=== PATIENT | female | born 1990 | race African-American/Black ===

== ENCOUNTER 2017-05-20 16:19 | Observation (INO) | payer MEDICAID ==
[~2017-05-20] VITALS: Ht 167.6 cm; Wt 96.2 kg
[2017-05-20] MEDS ORDERED: PREN-380 PO (17:14)
[2017-05-20] MEDS ORDERED: FERR325E14 PO (17:14)
[2017-05-20 20:06] VITALS: BP 116/65
== END 2017-05-20 20:15 | disposition home or self-care (01) ==
LOC: MLD 16:19
PROVIDERS: ADMIT Obstetrics & Gynecology; ATTEND Obstetrics & Gynecology
DX: O26.893 Other specified pregnancy related conditions, third trimester (principal); R10.9 Unspecified abdominal pain; Z3A.38 38 weeks gestation of pregnancy
CPT/HCPCS: 76805; G0378; Q0092; 59025; 81000

== ENCOUNTER 2017-06-04 10:36 | Inpatient (IN) | payer MEDICAID ==
[~2017-06-04] VITALS: Ht 167.6 cm; Wt 97.5 kg
[2017-06-04] MEDS: AMPICILLIN 1,000 MG in NACL 0.9% MINI-BAG PLUS 50 ML IV SCH ×3 (02:12→22:15)
[~2017-06-04 10:36] MED LIST: FERR325E14 PO; PREN-380 PO
[2017-06-04] MEDS ORDERED: NALBUPHINE HYDROCHLORIDE 10 MG/ML VIAL IVP PRN (11:00)
[2017-06-04] MEDS ORDERED: CARBOPROST 250 MCG/ML AMP IM PRN (11:00)
[2017-06-04] MEDS ORDERED: PROMETHAZINE 25 MG/ML VIAL IVP SCH (11:00)
[2017-06-04] MEDS ORDERED: METHYLERGONOVINE 0.2 MG/ML AMP IM PRN (11:00)
[2017-06-04] MEDS ORDERED: AMPICILLIN 2,000 MG in NACL 0.9% MINI-BAG PLUS 100 ML IV SCH (11:00)
[2017-06-04] MEDS ORDERED: OXYTOCIN 10 UNITS/ML VIAL IM SCH (11:00)
[2017-06-04 11:13] VITALS: BP 117/75
[2017-06-04] MEDS ORDERED: AMPICILLIN 2,000 MG VIAL ONE (11:49)
[2017-06-04] MEDS ORDERED: MISOPROSTOL 25 MCG TAB VG SCH (12:00)
[2017-06-04] MEDS: LACTATED RINGERS 1,000 ML IV SCH ×2 (12:15→18:38)
[2017-06-04] MEDS ORDERED: MISOPROSTOL 25 MCG TAB ONE (13:17)
[2017-06-04 13:48] LABS: BASOPHILS % (AUTO) 0.5 % (0.0-2.0); EOSINOPHILS # (AUTO) 0.1 K/uL (0-0.4); EOSINOPHILS % (AUTO) 0.9 % (0.0-4.0); HEMATOCRIT 39.3 % (36-48); HEMOGLOBIN 13.1 g/dL (12.0-16.0); LYMPHOCYTES # (AUTO) 1.3 K/uL (2.5-16.5); MEAN CORPUSCULAR HEMOGLOBIN 30 pg (27-31); MEAN CORPUSCULAR HGB CONC 34 g/dL (33-37); MEAN CORPUSCULAR VOLUME 89 fL (80-94); MONOCYTES # (AUTO) 0.4 K/uL (0.8-1.0); MONOCYTES % (AUTO) 4.7 % (1.7-9.3); NEUTROPHILS # (AUTO) 5.9 K/uL (1.8-7.7); NEUTROPHILS % (AUTO) 76.9 % (42.2-75.2); PLATELET COUNT (AUTO) 179 K/uL (140-450); RED BLOOD CELL COUNT(AUTO) 4.43 MIL/uL (4.20-5.40); RED CELL DISTRIBUTION WIDTH 14.2 % (11.6-13.7); WHITE BLOOD COUNT (AUTO) 7.8 K/uL (4.8-10.8)
[2017-06-04 14:11] LABS: ALBUMIN 2.6 g/dL (3.4-5.0); ANION GAP 13.8 (8-16); CARBON DIOXIDE 23.8 mmol/L (21-32); CREATININE 0.7 mg/dL (0.6-1.3); POTASSIUM 3.6 mmol/L (3.5-5.1); TOTAL BILIRUBIN 0.4 mg/dL (0.0-1.0)
[2017-06-04 14:22] LABS: APPEARANCE,URINE CLEAR (CLEAR); BILIRUBIN,URINE NEGATIVE (NEGATIVE); BLOOD, URINE NEGATIVE (NEGATIVE); COLOR,URINE YELLOW (YELLOW); LEUKOCYTE ESTERASE ,URINE NEGATIVE (NEGATIVE); NITRITE, URINE NEGATIVE (NEGATIVE); PH,URINE 6.5 (5.0-9.0); UGLUCOSE NEGATIVE (NEGATIVE)
[2017-06-04] MEDS ORDERED: AMPICILLIN 1,000 MG VIAL ONE ×2 (18:40→22:10)
[2017-06-05] MEDS: AMPICILLIN 1,000 MG in NACL 0.9% MINI-BAG PLUS 50 ML IV SCH ×3 (01:30→19:55)
[2017-06-05] MEDS ORDERED: AMPICILLIN 1,000 MG VIAL ONE ×3 (02:04→19:35)
[2017-06-05] MEDS: LACTATED RINGERS 1,000 ML IV SCH ×4 (04:21→17:27)
[2017-06-05] MEDS ORDERED: OXYTOCIN 20 UNITS/LR PREMIX 1,000 ML IV ONE (04:55)
--- NOTE | 2017-06-05 10:43 | NUR ---
PATIENT HAS BEEN SCREENED AND CATEGORIZED LOW NUTRITION RISK. PATIENT WILL BE SEEN WITHIN 7 DAYS OF ADMISSION. 06/11/17 LIZETTE NEWTON MBA, RD
[2017-06-05] MEDS ORDERED: BUPIVACAINE 0.125%/NS PREMIX 250 ML ONE (14:38)
[2017-06-05] MEDS ORDERED: BUPIVACAINE 0.125%/NS PREMIX 250 ML EPI SCH (15:45)
[2017-06-06] MEDS ORDERED: AMPICILLIN 1,000 MG VIAL ONE ×3 (01:28→08:30)
[2017-06-06] MEDS: LACTATED RINGERS 1,000 ML IV SCH ×2 (01:30→12:35)
[2017-06-06] MEDS ORDERED: BUPIVACAINE 0.125%/NS PREMIX 250 ML ONE (03:22)
[2017-06-06] MEDS ORDERED: OXYTOCIN 20 UNITS/LR PREMIX 1,000 ML IV ONE (04:59)
[2017-06-06] MEDS: AMPICILLIN 1,000 MG in NACL 0.9% MINI-BAG PLUS 50 ML IV SCH (09:00)
[2017-06-06] MEDS ORDERED: OXYTOCIN 10 UNITS/ML VIAL ONE ×3 (11:05→21:45)
[2017-06-06] MEDS ORDERED: ceFAZolin 2,000 MG in NACL 0.9% 100 ML IV ONE (17:50)
[2017-06-06] MEDS ORDERED: CITRIC ACID/SODIUM CITRATE 30 ML UDC PO SCH (17:50)
[2017-06-06] MEDS ORDERED: CITRIC ACID/SODIUM CITRATE 30 ML UDC ONE (18:28)
[2017-06-06] MEDS ORDERED: MORPHINE PRES FREE 10 MG/10 ML AMP IV ONE (19:10)
[2017-06-06] MEDS ORDERED: LIDOCAINE/EPI MPF 2%1:200000 10 ML VIAL INJ ONE (19:10)
[2017-06-06] MEDS ORDERED: SODIUM BICARBONATE 8.4% PFS 50 MEQ/50 ML SYR IVP ONE (19:11)
[2017-06-06] MEDS ORDERED: ceFAZolin 1,000 MG VIAL IVP ONE (19:25)
[2017-06-06] MEDS ORDERED: KETAMINE 500 MG/5 ML VIAL ONE (20:43)
[2017-06-06] MEDS ORDERED: ONDANSETRON 4 MG/2 ML VIAL IVP PRN ×2 (21:20)
[2017-06-06] MEDS ORDERED: KETOROLAC 60 MG/2 ML VIAL IM PRN (21:20)
[2017-06-06] MEDS ORDERED: NALOXONE 0.4 MG/ML VIAL IVP PRN ×3 (21:20)
[2017-06-06] MEDS ORDERED: NALBUPHINE 10 MG/ML AMP IVP PRN (21:20)
[2017-06-06] MEDS ORDERED: diphenhydrAMINE 50 MG/ML VIAL IVP PRN (21:20)
[2017-06-06] MEDS ORDERED: ONDANSETRON 4 MG/2 ML VIAL ONE (21:45)
[2017-06-06] MEDS ORDERED: ACETAMINOPHEN 325 MG TAB PO PRN (22:05)
[2017-06-06] MEDS ORDERED: KETOROLAC 30 MG/ML VIAL IVP PRN (22:05)
[2017-06-06] MEDS ORDERED: MEASLES, MUMPS, AND RUBELLA 1 VIAL SQVAC PRN (22:05)
[2017-06-06] MEDS ORDERED: HYDROmorphone PFS 2 MG/ML SYR IVP PRN (22:05)
[2017-06-07] MEDS ORDERED: OXYTOCIN 20 UNITS/LR PREMIX 1,000 ML IV ONE (03:06)
[2017-06-07] MEDS: OXYTOCIN 20 UNITS in LACTATED RINGERS 1,000 ML IV SCH ×2 (03:46→12:30)
[2017-06-07 07:38] LABS: BASOPHILS % (AUTO) 0.3 % (0.0-2.0); EOSINOPHILS # (AUTO) 0.1 K/uL (0-0.4); EOSINOPHILS % (AUTO) 0.8 % (0.0-4.0); HEMATOCRIT 33.1 % (36-48); HEMOGLOBIN 11.3 g/dL (12.0-16.0); LYMPHOCYTES # (AUTO) 1.3 K/uL (2.5-16.5); LYMPHOCYTES % (AUTO) 9.4 % (20.5-51.1); MEAN CORPUSCULAR HEMOGLOBIN 30 pg (27-31); MEAN CORPUSCULAR HGB CONC 34 g/dL (33-37); MEAN CORPUSCULAR VOLUME 87 fL (80-94); MONOCYTES # (AUTO) 1.1 K/uL (0.8-1.0); NEUTROPHILS # (AUTO) 11.2 K/uL (1.8-7.7); NEUTROPHILS % (AUTO) 81.5 % (42.2-75.2); PLATELET COUNT (AUTO) 151 K/uL (140-450); RED BLOOD CELL COUNT(AUTO) 3.81 MIL/uL (4.20-5.40); RED CELL DISTRIBUTION WIDTH 14.4 % (11.6-13.7); WHITE BLOOD COUNT (AUTO) 13.7 K/uL (4.8-10.8)
[2017-06-08] MEDS ORDERED: INFLUENZA VIRUS VACCINE QUAD 0.5 ML SYR IMVAC SCH (00:55)
[2017-06-08] MEDS ORDERED: DOCUSATE SODIUM 100 MG GELCAP PO PRN (08:00)
[2017-06-08] MEDS ORDERED: oxyCODONE/APAP 5/325 MG 1 TAB TAB PO PRN (08:00)
[2017-06-08] MEDS ORDERED: BISACODYL 5 MG TABEC PO PRN (08:00)
[2017-06-08] MEDS ORDERED: SODIUM PHOSPHATE 118 ML ENEM RC PRN (08:00)
[2017-06-08] MEDS ORDERED: SIMETHICONE 80 MG TAB.CHEW PO PRN (08:00)
[2017-06-08] MEDS: IBUPROFEN 600 MG TAB PO PRN ×2 (11:23→18:17)
[2017-06-09] MEDS: IBUPROFEN 600 MG TAB PO PRN ×3 (08:04→21:35)
[2017-06-10] MEDS: IBUPROFEN 600 MG TAB PO PRN ×2 (04:01→10:03)
[2017-06-10 06:07] LABS: BASOPHILS # (AUTO) 0.1 K/uL (0.00-0.22); BASOPHILS % (AUTO) 0.4 % (0.0-2.0); EOSINOPHILS # (AUTO) 0.1 K/uL (0-0.4); EOSINOPHILS % (AUTO) 0.9 % (0.0-4.0); HEMATOCRIT 31.3 % (36-48); HEMOGLOBIN 10.8 g/dL (12.0-16.0); LYMPHOCYTES # (AUTO) 1.5 K/uL (2.5-16.5); LYMPHOCYTES % (AUTO) 11.5 % (20.5-51.1); MEAN CORPUSCULAR HEMOGLOBIN 30 pg (27-31); MEAN CORPUSCULAR HGB CONC 34 g/dL (33-37); MEAN CORPUSCULAR VOLUME 87 fL (80-94); MONOCYTES # (AUTO) 1.1 K/uL (0.8-1.0); NEUTROPHILS # (AUTO) 10.4 K/uL (1.8-7.7); NEUTROPHILS % (AUTO) 79.2 % (42.2-75.2); PLATELET COUNT (AUTO) 187 K/uL (140-450); WHITE BLOOD COUNT (AUTO) 13.2 K/uL (4.8-10.8)
== END 2017-06-10 18:10 | disposition home or self-care (01) | DRG 540 ==
LOC: MFCC 10:36 → MLD 06-06 10:35 → MFCC 06-06 22:00
PROVIDERS: ADMIT Obstetrics & Gynecology; ATTEND Obstetrics & Gynecology
PROC: 3E033VJ Introduction of Other Hormone into Peripheral Vein, Percutaneous Approach (ICD-10-PCS; 2017-06-06)
PROC: 10D00Z1 Extraction of Products of Conception, Low, Open Approach (ICD-10-PCS; principal; 2017-06-06 19:00)
PROC: 3E0234Z Introduction of Serum, Toxoid and Vaccine into Muscle, Percutaneous Approach (ICD-10-PCS; 2017-06-08)
DX: O48.0 Post-term pregnancy (principal); O41.03X0 Oligohydramnios, third trimester, not applicable or unspecified; O62.1 Secondary uterine inertia; E66.9 Obesity, unspecified; Z37.0 Single live birth; O99.214 Obesity complicating childbirth; Z68.35 Body mass index [BMI] 35.0-35.9, adult; O77.0 Labor and delivery complicated by meconium in amniotic fluid; Z3A.40 40 weeks gestation of pregnancy; Z23 Encounter for immunization
CPT/HCPCS: 36415; 51702; 76815; 80053; 81003; 85025; 86592; 86886; 86900; 86901; 87086; 87653-90; 90658; 90715; J0290; J0690; J1885; J2001; J2270; J2405; J2590; J3490; J7120; Q0092